=== PATIENT | male | born 1995 | race Caucasian/White ===

== ENCOUNTER 2025-01-11 07:56 | Outpatient (RCR) | payer BC, SELFPAY ==
[2025-01-11 08:22] VITALS: BP 103/66; PULSE 108; RESP 16; TEMP 36.6; BMI 18.5
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
--- NOTE | 2025-01-11 13:34 | WC ---
PHOTO 01/11/25 RIGHT GREAT TOE
== END 2025-01-11 23:59 | disposition home or self-care (01) ==
LOC: WC 07:56
PROVIDERS: PCP Family Medicine; Referring Provider Family Medicine; Visit Provider Nurse Practitioner
DX: L00 Staphylococcal scalded skin syndrome (principal); G82.20 Paraplegia, unspecified; S91.101A Unspecified open wound of right great toe without damage to nail, initial encounter; F17.200 Nicotine dependence, unspecified, uncomplicated; S91.102A Unspecified open wound of left great toe without damage to nail, initial encounter; X58.XXXA Exposure to other specified factors, initial encounter
CPT/HCPCS: 11042; 11045; 87070; 87075; 87077; 87186; 87205; 99204; G0463

== ENCOUNTER 2025-02-08 08:30 | Outpatient (RCR) | payer BC, SELFPAY ==
[2025-01-12 00:24] VITALS: BP 103/66; PULSE 108; RESP 16; TEMP 36.6; BMI 18.5
[2025-01-18 08:34] VITALS: BP 142/83; PULSE 101; RESP 161; TEMP 36.5; BMI 18.5
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
[2025-01-25 08:35] VITALS: BP 132/76; PULSE 97; RESP 18; TEMP 35.5; BMI 18.5
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
--- NOTE | 2025-01-25 13:27 | WC ---
PHOTO 01/25/25 RIGHT GREAT HALLUX
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
[2025-02-01 12:00] VITALS: BP 150/91; PULSE 93; RESP 18; TEMP 36.1; BMI 18.5
--- NOTE | 2025-02-02 10:20 | WC ---
PHOTO 02/01/25 RIGHT GREAT TOE
[2025-02-08 08:40] VITALS: BP 124/69; PULSE 82; RESP 14; TEMP 36.3; BMI 18.5
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
== END 2025-02-11 23:59 | disposition home or self-care (01) ==
LOC: WC 08:30
PROVIDERS: PCP Family Medicine; Referring Provider Family Medicine; Visit Provider Nurse Practitioner
DX: L00 Staphylococcal scalded skin syndrome (principal); G82.20 Paraplegia, unspecified; S91.101A Unspecified open wound of right great toe without damage to nail, initial encounter; X58.XXXA Exposure to other specified factors, initial encounter
CPT/HCPCS: 11042; 11045

== ENCOUNTER 2025-03-08 08:30 | Outpatient (RCR) | payer BC, SELFPAY ==
[2025-02-12 00:14] VITALS: BP 124/69; PULSE 82; RESP 14; TEMP 36.3; BMI 18.5
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
[2025-02-22 08:47] VITALS: BP 116/83; PULSE 104; RESP 18; TEMP 36.6; BMI 18.5
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
--- NOTE | 2025-02-22 14:00 | WC ---
PHOTO 02/22/25 RIGHT GREAT TOE
[2025-03-01 08:31] VITALS: BP 131/92; PULSE 94; RESP 18; TEMP 36.6; BMI 18.5
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
--- NOTE | 2025-03-02 09:01 | WC ---
PHOTO 03/01/25 RIGHT GREAT TOE
[2025-03-08 08:46] VITALS: BP 131/86; PULSE 84; RESP 18; TEMP 36.8; BMI 18.5
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
--- NOTE | 2025-03-09 10:06 | WC ---
PHOTO 03/08/25 RIGHT GREAT TOE
== END 2025-03-13 23:59 | disposition home or self-care (01) ==
LOC: WC 08:30
PROVIDERS: PCP Family Medicine; Referring Provider Family Medicine; Visit Provider Nurse Practitioner
DX: L00 Staphylococcal scalded skin syndrome (principal); G82.20 Paraplegia, unspecified; S91.101A Unspecified open wound of right great toe without damage to nail, initial encounter; X58.XXXA Exposure to other specified factors, initial encounter; Z79.2 Long term (current) use of antibiotics; Z86.14 Personal history of Methicillin resistant Staphylococcus aureus infection
CPT/HCPCS: 11042; 99212; 99213; G0463